=== PATIENT | female | born 1990 | race Caucasian/White ===

== ENCOUNTER 2021-04-04 08:28 | Emergency (ER) | payer MEDICAID, SELFPAY ==
[2021-04-04 08:44] VITALS: BP 142/78; PULSE 82; RESP 18; TEMP 36.5; O2SAT 98; BMI 19.1
--- NOTE | 2021-04-04 09:02 | W.ED.BACK ---
HPI - Back Pain/Injury General: Chief Complaint: Back Pain/Injury Stated Complaint: back injury/pain Time Seen by Provider: 04/04/21 08:44 History of Present Illness: HPI Narrative: Patient states her back pain continues. She continues to work and it seems aggravated. She felt like the injection did not help much. Patient states that the pain radiates down left hip left leg to about knee area. Worse with movement. MD elicited complaint: back injury Onset (ago): day(s) Timing: constant Severity: moderate Similar Symptoms Previously: Yes Quality: burning and aching Location: lumbar spine Radiation: left upper leg Exacerbating factors: movement and lifting Relieving factors: immobilization Context: turning/twisting (Was lifting boxes at work) Associated symptoms: Reports no associated symptoms; Deny abdominal pain, chills, fever(s), nausea or vomiting Treatments prior to arrival: cold therapy and NSAIDS Review of Systems Const: Denies: fever(s), chills or body aches Eyes: Denies: change in vision or blurry vision ENMT: Denies: throat pain or nasal congestion Card: Denies: chest pain or dyspnea on exertion Resp: Denies: dyspnea, productive cough or non-productive cough GI: Denies: abdominal pain, nausea or vomiting Musc: Reports: back pain; Denies: extremity pain Skin/Breast: Denies: rash Neuro: Denies: headache(s) Psych: Denies: anxiety or depression Miah/Lymph: Denies: easy bruising PFS ED PFSH: Social History Smoking and tobacco status: current every day smoker Physical Exam Const: COMMON NORMALS: no acute distress, average body habitus and patient oriented x3 HENMT: COMMON NORMALS: normocephalic HEAD & SCALP: normal to inspection and normocephalic FACE & SINUS: normal facial exam Eye: COMMON NORMALS: conjunctivae normal GENERAL EYE: appearance normal, both eyes and all related structures CONJUNCTIVA: Yes conjunctivae normal Neck/C-Spine: COMMON NORMALS: no JVD Chest: COMMONS NORMALS: normal inspection of the chest Resp: COMMON NORMALS: normal respiratory effort Cardio: COMMON NORMALS: no JVD and regular rate RATE: regular rate GI: COMMON NORMALS: Normal to inspection, nondistended, normoactive bowel sounds present Back/Pelvis: LUMBAR SPINE/LOWER BACK: Yes paraspinal muscle tenderness, No paraspinal muscle spasm, No straight leg raise negative bilaterally, Yes straight leg raise positive right Straight leg raise positive details right: at 40 degrees and Yes straight leg raise positive left Straight leg raise positive details left: at 60 degrees PELVIS: Yes buttocks normal SACROILIAC JOINTS: Yes SI joints normal Extremity: COMMON NORMALS: normal to inspection and full ROM Neuro: COMMON NORMALS: patient oriented x3 Skin: COMMON NORMALS: no rashes or lesions noted GENERAL SKIN EXAM: no rashes or lesions noted Course Vital Signs: Vital signs: Vital Signs Temperature 97.7 F 04/04/21 08:44 Pulse Rate 82 04/04/21 08:44 Respiratory Rate 18 04/04/21 08:44 Blood Pressure 142/78 04/04/21 08:44 Pulse Oximetry 98 04/04/21 08:44 MDM - Back Pain/Injury MDM Narrative: Medical decision making narrative: Lumbar radiculopathy. Patient will do light duty work for next 4 weeks. We will go see a chiropractor. Will do ice and heat to the area. Will take medication as directed. Discharge Plan Discharge Patient Disposition: Home Clinical Impression: Lumbar radiculopathy Condition: Stable Prescriptions: New prednisone 20 mg tablet 20 mg PO DAILY Qty: 7 RF: 0 Celebrex 100 mg capsule 100 mg PO BID Qty: 20 RF: 0 Discontinued naproxen 500 mg tablet 500 mg PO BID 10 Days Qty: 20 RF: 0 No Action baclofen 10 mg tablet 10 mg PO BID PRN (Reason: pain) Qty: 8 RF: 0 Discharge Orders: Discharge ED (Routine); Ordered 04/04/21 Ordered By: Fede Sue Discharge Diet: Usual diet Discharge Activity: Limit activity as instructed Patient Instructions: Lumbar Radiculopathy (ED) Activity Restrictions/Additional Instructions: Follow-up with medical provider as directed. Take medications as prescribed. Return to the ER or your medical provider if condition worsens. Please read and understand discharge instructions. If any questions ask please. I recommend visit with chiropractic. Continue ice and alternate with heat. 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
== END 2021-04-04 09:36 | disposition home or self-care (01) ==
PROVIDERS: Emergency Provider Nurse Practitioner Family
DX: M54.16 Radiculopathy, lumbar region (principal); F17.200 Nicotine dependence, unspecified, uncomplicated
CPT/HCPCS: 99281

== ENCOUNTER 2024-02-22 07:04 | Emergency (ER) | payer BC, MEDICAID, SELFPAY ==
[2024-02-22 07:15] VITALS: BP 126/87; PULSE 79; RESP 16; TEMP 36.8; O2SAT 99
--- NOTE | 2024-02-22 07:15 | ECG_ITS ---
[facility] Test Date: 2024-02-22 Pat Name: Latrell Valentine Department: Room: Gender: Female Nurse Instructor: : 1990 Requested By: Jamie Olivarez Order Number: [id number] Keith MD: Matheus King M.D. Measurements Intervals [place] Rate: 68 P: 59 KS: 130 QRS: 73 QRSD: 97 T: 87 QT: 352 QTc: 377 Interpretive Statements SINUS RHYTHM NONSPECIFIC T-WAVE ABNORMALITY No previous ECG available for comparison Electronically Signed On 02-22-2024 16:41:40 CDT by Matheus King M.D. [id number]
--- NOTE | 2024-02-22 07:15 | XR_ITS ---
WS: [id number] Examination: XR ribs RT mn 3V w CXR1V [id number] Reason for Exam: pain Date: February 22, 2024 Comparison: None. Findings: The cardiomediastinal silhouette is within normal limits. The lungs are well expanded. There is no effusion or consolidation. There is a minimally displaced fracture involving the anterior aspect of the right 10th rib. The bone density is maintained. There is no destruction. XR/XR ribs RT mn 3V w CXR1V [id number] Impression: There is a fracture involving the anterior aspect of the right 10th rib.
--- NOTE | 2024-02-22 07:20 | W.ED.GENADLT ---
HPI - General Adult General: Chief complaint: Abdominal Pain Stated complaint: Right side rib pain Time Seen by Provider: 02/22/24 07:15 History of Present Illness: 33-year-old female presents emergency room with right-sided rib pain began after she pressed chest wall that is approved here she was breathing couple of days ago no difficulty breathing no direct blows or trauma. No other injuries. No hemoptysis no productive cough no fever sweats or chills no rash in that area. Associated symptoms: Deny chest pain, dyspnea or rash Related Data Previous Rx's Medication Instructions Recorded trazodone 50 mg tablet 100 mg (2 x 50 mg) PO .HS PRN 03/15/23 insomnia #60 tabs hydrocodone 5 mg-acetaminophen 325 1 tab PO Q6H PRN pain #15 tabs 02/22/24 mg tablet Allergies Allergy/AdvReac Type Severity Reaction Status Date / Time No Known Allergies Allergy Verified 03/15/23 13:46 Review of Systems Const: Denies: fever(s) or chills Card: Denies: chest pain Resp: Denies: dyspnea GI: Denies: abdominal pain Musc: Denies: neck pain or back pain Skin/Breast: Denies: rash PFSH ED PFSH: Medical History Psychiatric care Social History Smoking and tobacco/nicotine status: current every day tobacco/nicotine user Physical Exam Const: COMMON NORMALS: no acute distress GENERAL APPEARANCE: cooperative and comfortable ORIENTATION/CONSCIOUSNESS: Yes awake, Yes oriented to person, Yes oriented to place and Yes oriented to time HENMT: COMMON NORMALS: normocephalic, atraumatic and hearing grossly normal bilaterally HEAD & SCALP: normocephalic and atraumatic Chest: OTHER: Reproducible pain at the level of the 5th-7th ribs at the mid axillary line. No crepitus no abrasions no ecchymosis no vesicular rash. Resp: COMMON NORMALS: normal respiratory effort, No retractions, No use of accessory muscles and clear to auscultation bilaterally AUSCULTATION: clear to auscultation bilaterally Cardio: COMMON NORMALS: regular rate, regular rhythm and No murmurs present (Cardio) RATE: regular rate RHYTHM: regular rhythm GI: COMMON NORMALS: Soft to palpation and No hepatosplenomegaly present AUSCULTATION: Yes normoactive bowel sounds PALPATION: Yes Soft to palpation, No Tenderness to palpation present (GI), No Guarding due to palpation present (GI) and Yes No hepatosplenomegaly present Extremity: COMMON NORMALS: normal to inspection, capillary refill normal, no clubbing, cyanosis or edema, no calf tenderness and no pedal edema Neuro: SENSORIUM/ORIENTATION: Yes oriented to person, Yes oriented to place and Yes oriented to time Skin: COMMON NORMALS: no rashes or lesions noted GENERAL SKIN EXAM: no rashes or lesions noted Course Vital Signs: Vital signs: Vital Signs Temperature 98.3 F 02/22/24 07:15 Pulse Rate 67 02/22/24 09:41 Respiratory Rate 16 02/22/24 07:15 Blood Pressure 120/76 02/22/24 09:41 Pulse Oximetry 99 02/22/24 09:41 Oxygen Delivery Me thod Room Air 02/22/24 09:00 MDM - General Adult Medical Decision Making X-ray shows nondisplaced right 10th rib fracture. Discharge home with hydrocodone use for pain. Can apply ice to the area limit activity follow-up as needed Lab Data Radiology Impressions Ribs X-Ray 02/22/24 07:15 Impression: There is a fracture involving the anterior aspect of the right 10th rib. All radiology interpretation(s) finalized by discharge EKG Data EKG 1: Interpretation: 02/22/2024 717 EKG shows normal sinus rhythm rate of [address] elevation. [place] interval 130 QTc 370 normal axis Computer generated interpretation: Ribs X-Ray 02/22/24 07:15 Impression: There is a fracture involving the anterior aspect of the right 10th rib. Discharge Plan Discharge Patient Disposition: Home Clinical Impression: Fracture of rib Condition: Stable Prescriptions: New hydrocodone-acetaminophen 5-325 mg tablet 1 tab PO Q6H PRN (Reason: pain) Qty: 15 0RF No Action trazodone 50 mg tablet 100 mg PO .HS PRN (Reason: insomnia) Qty: 60 1RF Discharge Orders: Discharge ED (Routine); Ordered 02/22/24 Ordered By: Jamie Menendez Discharge Diet: Usual diet Discharge Activity: Increase activity as tolerated Patient Instructions: Opioid Safety, Pain Management Activity Restrictions/Additional Instructions: Thank you for choosing [facility] for your healthcare needs today. It is very important that you follow up as instructed or that you return to the Emergency Department should you have concerns or if your condition changes or worsens in any way. You were seen today for right sided rib pain. X-rays showed a nondisplaced fracture of your right 10th rib. This should heal on its own over the next approximately 6 weeks. You can ice the rib for comfort avoid heavy lifting bending or twisting. You may increase your activities as pain allows. You are given a prescription for hydrocodone to use as needed. 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
[2024-02-22] MEDS: ketorolac 30 mg/mL INJ IVP (07:52)
[2024-02-22 09:00] VITALS: BP 113/77; PULSE 68; O2SAT 97
[2024-02-22 09:41] VITALS: BP 120/76; PULSE 67; O2SAT 99
== END 2024-02-22 09:42 | disposition home or self-care (01) ==
PROVIDERS: Emergency Provider Family Medicine
DX: S22.31XA Fracture of one rib, right side, initial encounter for closed fracture (principal); Z72.0 Tobacco use; X58.XXXA Exposure to other specified factors, initial encounter
CPT/HCPCS: 71101; 93005; 96374; 99284; J1885

== ENCOUNTER 2024-03-02 06:47 | Emergency (ER) | payer BC, MEDICAID, SELFPAY ==
[2024-03-02 06:50] VITALS: BP 127/77; PULSE 96; RESP 16; TEMP 36.6; O2SAT 100; BMI 18.3
--- NOTE | 2024-03-02 06:57 | XR_ITS ---
WS: [id number] XR ribs RT mn 3V w CXR1V [id number] REASON FOR EXAM: pain FINDINGS: Fracture of the antral lateral right 10th rib unchanged from 02/22/2024. No pneumothorax or pleural effusion. XR/XR ribs RT mn 3V w CXR1V [id number] IMPRESSION: Stable right rib fracture.
--- NOTE | 2024-03-02 07:15 | W.ED.GENADLT ---
HPI - General Adult General: Chief complaint: General Medical Stated complaint: Right side rib pain Time Seen by Provider: 03/02/24 06:55 History of Present Illness: 33-year-old female presents emergency room she was seen 9 days ago had 10th rib fracture. She states last night it began hurting again. She denies reinjuring it no recent falls. No rash. She has not had any hemoptysis fever sweats or chills. Associated symptoms: Reports chest pain (Right lateral overlying known rib fracture); Deny dyspnea or rash Related Data Previous Rx's Medication Instructions Recorded trazodone 50 mg tablet 100 mg (2 x 50 mg) PO .HS PRN 03/15/23 insomnia #60 tabs hydrocodone 5 mg-acetaminophen 325 1 tab PO Q6H PRN pain #15 tabs 02/22/24 mg tablet diclofenac sodium 75 mg 75 mg PO Q12H PRN pain #20 tabs 03/02/24 tablet,delayed release hydrocodone 5 mg-acetaminophen 325 1 tab PO Q6H PRN pain #5 tabs 03/02/24 mg tablet Allergies Allergy/AdvReac Type Severity Reaction Status Date / Time No Known Allergies Allergy Verified 03/15/23 13:46 Review of Systems Const: Denies: fever(s) or chills Card: Reports: chest pain (Right lateral overlying known rib fracture) Resp: Denies: dyspnea GI: Denies: abdominal pain : Denies: dysuria, urinary frequency or urinary urgency Musc: Denies: neck pain or back pain Skin/Breast: Denies: rash PFS ED PFSH: Medical History Psychiatric care Social History Smoking and tobacco/nicotine status: current every day tobacco/nicotine user Female Reproductive History: Date of last menstrual period: 02/20/24 Physical Exam Const: COMMON NORMALS: no acute distress GENERAL APPEARANCE: cooperative and comfortable ORIENTATION/CONSCIOUSNESS: Yes awake, Yes oriented to person, Yes oriented to place and Yes oriented to time HENMT: COMMON NORMALS: normocephalic, atraumatic and hearing grossly normal bilaterally HEAD & SCALP: normocephalic and atraumatic Resp: COMMON NORMALS: normal respiratory effort, No retractions, No use of accessory muscles and clear to auscultation bilaterally AUSCULTATION: clear to auscultation bilaterally Cardio: COMMON NORMALS: regular rate, regular rhythm and No murmurs present (Cardio) RATE: regular rate RHYTHM: regular rhythm Extremity: COMMON NORMALS: normal to inspection, capillary refill normal, no clubbing, cyanosis or edema, no calf tenderness and no pedal edema Neuro: SENSORIUM/ORIENTATION: Yes oriented to person, Yes oriented to place and Yes oriented to time Skin: COMMON NORMALS: no rashes or lesions noted GENERAL SKIN EXAM: no rashes or lesions noted Course Vital Signs: Vital signs: Vital Signs Temperature 97.8 F 03/02/24 06:50 Pulse Rate 87 03/02/24 07:49 Respiratory Rate 16 03/02/24 06:50 Blood Pressure 133/73 03/02/24 07:49 Pulse Oximetry 100 03/02/24 07:49 Oxygen Delivery Me thod Room Air 03/02/24 06:50 MDM - General Adult Medical Decision Making X-ray shows 10th rib fracture nondisplaced lung [place] are normal. Note given for off work for the next few days due to pain use diclofenac or hydrocodone given for pain control avoid heavy lifting twisting bending Medical Records I reviewed the patient's medical records. Lab Data Radiology Impressions Ribs X-Ray 03/02/24 06:57 IMPRESSION: Stable right rib fracture. XR interpretation done by ED provider, pending radiology final review ED provider radiology interpretation(s): Right 10th rib fracture. Lung [place] normal no pneumothorax no pneumonia rib fracture stable no displacement Discharge Plan Discharge Patient Disposition: Home Clinical Impression: Closed rib fracture Condition: Stable Prescriptions: New hydrocodone-acetaminophen 5-325 mg tablet 1 tab PO Q6H PRN (Reason: pain) Qty: 5 0RF diclofenac sodium 75 mg tablet,delayed release (DR/EC) 75 mg PO Q12H PRN (Reason: pain) Qty: 20 0RF No Action trazodone 50 mg tablet 100 mg PO .HS PRN (Reason: insomnia) Qty: 60 1RF hydrocodone-acetaminophen 5-325 mg tablet 1 tab PO Q6H PRN (Reason: pain) Qty: 15 0RF Discharge Orders: Discharge ED (Routine); Ordered 03/02/24 Ordered By: Jamie Menendez Discharge Diet: Usual diet Discharge Activity: Limit activity as instructed Patient Instructions: Rib Fracture (ED), Opioid Safety, Pain Management Activity Restrictions/Additional Instructions: You were seen today for rib fracture. X-rays did not show any significant changes from previous. Fracture is not displaced. Recommend avoiding heavy lifting bending twisting. As this will exacerbate your pain and likely prolong healing time. Stand Alone Forms: Work/School Release Coding Level of Care Code ED Student Success Coach for [employer]
[2024-03-02 07:47] VITALS: BP 133/73; PULSE 87; O2SAT 100
[2024-03-02 07:49] VITALS: BP 133/73; PULSE 87; O2SAT 100
== END 2024-03-02 07:55 | disposition home or self-care (01) ==
PROVIDERS: Emergency Provider Family Medicine
DX: S22.31XA Fracture of one rib, right side, initial encounter for closed fracture (principal); Z72.0 Tobacco use; X58.XXXA Exposure to other specified factors, initial encounter
CPT/HCPCS: 71101; 99283